=== PATIENT | female | born 2000 | race Caucasian/White ===

== ENCOUNTER 2023-04-06 12:47 | Emergency (ER) | payer OTHER ==
[~2023-04-06] VITALS: Ht 154.9 cm; Wt 52.7 kg
[2023-04-06 12:54] VITALS: TEMP 98.2
[2023-04-06 13:30] LABS: BASOPHILS % (AUTO) 0.7 % (0.0-2.0); EOSINOPHILS % (AUTO) 2.5 % (1.0-6.0); HEMATOCRIT 32.8 % (36-46); LYMPHOCYTES # (AUTO) 1.2 K/uL (1.0-4.8); LYMPHOCYTES % (AUTO) 19.4 % (22.0-44.0); MEAN CORPUSCULAR HEMOGLOBIN 28.3 pg (26.0-34.0); MEAN CORPUSCULAR HGB CONC 33.4 G/dL (31.0-37.0); MEAN CORPUSCULAR VOLUME 85 fL (80-100); MONOCYTES # (AUTO) 0.5 K/uL (0.1-1.0); MONOCYTES % (AUTO) 7.9 % (2.0-9.0); NEUTROPHILS # (AUTO) 4.4 K/uL (1.8-7.7); NEUTROPHILS % (AUTO) 69.5 % (40.0-70.0); PLATELET COUNT (AUTO) 268 K/uL (150-450); RED BLOOD CELL COUNT(AUTO) 3.88 MIL/uL (4.00-5.20); RED CELL DISTRIBUTION WIDTH 12.6 % (11.5-14.5); WHITE BLOOD COUNT (AUTO) 6.3 K/uL (4.5-11.0)
[2023-04-06 18:08] LABS: HEMATOCRIT 30.6 % (36-46); HEMOGLOBIN 10.1 g/dL (12.0-16.0); MEAN CORPUSCULAR HGB CONC 33.1 G/dL (31.0-37.0); MEAN CORPUSCULAR VOLUME 85 fL (80-100); PLATELET COUNT (AUTO) 233 K/uL (150-450); RED BLOOD CELL COUNT(AUTO) 3.61 MIL/uL (4.00-5.20); RED CELL DISTRIBUTION WIDTH 12.9 % (11.5-14.5); WHITE BLOOD COUNT (AUTO) 8.3 K/uL (4.5-11.0)
[2023-04-06 18:37] LABS: COVID AG,FIA SOURCE NASAL SWAB
[2023-04-06 18:51] VITALS: BP 100/63; PULSE 90; RESP 16
[2023-04-06 19:03] LABS: SARS-COV2 (COVID) ANTIGEN,FIA Negative (Negative)
== END 2023-04-06 20:10 | disposition short-term general hospital (02) ==
LOC: EMS 12:48
DX: O73.1 Retained portions of placenta and membranes, without hemorrhage (principal); Z3A.09 9 weeks gestation of pregnancy; Z20.822 Contact with and (suspected) exposure to COVID-19
CPT/HCPCS: 76801; 84702; 85025; 85027; 86850; 86900; 86901; 99285